=== PATIENT | male | born 1990 | race American Indian/Alaskan Native ===

== ENCOUNTER 2021-11-22 15:22 | Emergency (ER) | payer SELFPAY ==
[2021-11-22 15:43] VITALS: BP 116/67
--- NOTE | 2021-11-22 19:02 | Emergency Department Report ---
ED Male HPI - General Chief complaint: Urogenital-Male Stated complaint: BUMPS ON GENITAL AREA Time Seen by Provider: 11/22/21 18:38 Source: patient Mode of arrival: Ambulatory Limitations: No Limitations - History of Present Illness Initial comments: 31-year-old Filip[place] male presents to the emergency emerge department complaining of testicular masses nodules which been present for several years but he seems to have been evaluated today. He reports no pain no discharge no fever, chills, sweats. No nausea, no vomiting, no trauma -: Gradual Location: right testicle, left testicle Radiation: none Improves with: none Worsens with: none new medication - Related Data Allergies Allergy/AdvReac Type Severity Reaction Status Date / Time No Known Allergies Allergy Unverified 11/22/21 15:39 ED Review of Systems ROS: Stated complaint: BUMPS ON GENITAL AREA Other details as noted in HPI Comment: All other systems reviewed and negative ED Physical Exam - General Limitations: No Limitations General appearance: alert, in no apparent distress - Head Head exam: Present: atraumatic, normocephalic - Eye Eye exam: Present: normal appearance - ENT ENT exam: Present: mucous membranes moist - Neck Neck exam: Present: normal inspection - Respiratory Respiratory exam: Present: normal lung sounds bilaterally. Absent: respiratory distress - Cardiovascular Cardiovascular Exam: Present: regular rate, normal rhythm. Absent: systolic murmur, diastolic murmur, rubs, gallop - GI/Abdominal GI/Abdominal exam: Present: soft, normal bowel sounds - Rectal Rectal exam: Present: deferred - exam: Present: other (From 1.5 cm to 4 mm) External exam: Present: other (No lymphadenopathy) - Extremities Exam Extremities exam: Present: normal inspection - Back Exam Back exam: Present: normal inspection. Absent: CVA tenderness (R), CVA tenderness (L) - Neurological Exam Neurological exam: Present: alert, oriented X3, CN II-XII intact - Psychiatric Psychiatric exam: Present: normal affect, normal mood - Skin Skin exam: Present: warm, dry, intact, normal color. Absent: rash ED Course Vital Signs 11/22/21 15:41 Temperature 98.1 F Pulse Rate 58 L Respiratory 18 Rate Blood Pressure 116/67 [Right] O2 Sat by Pulse 99 Oximetry Critical care attestation.: If time is entered above; I have spent that time in minutes in the direct care of this critically ill patient, excluding procedure time. ED Disposition Clinical Impression: Testicular cyst Disposition: 01 HOME / SELF CARE / HOMELESS Is pt being admited?: No Does the pt Need Aspirin: No Condition: Stable Instructions: Testicular Self-Exam Referrals: PRIMARY CARE, [Primary Care Provider] - 3-5 Days [facility] [Provider Group] - 3-5 Days
== END 2021-11-22 19:30 | disposition home or self-care (01) ==
LOC: ED 15:22
DX: N44.2 Benign cyst of testis (principal); N50.812 Left testicular pain
CPT/HCPCS: 99282